=== PATIENT | male | born 1970 | race Caucasian/White ===

== ENCOUNTER 2016-08-21 16:53 | Emergency (ER) | payer OTHER ==
[~2016-08-21] VITALS: Ht 175.3 cm; Wt 96.9 kg
[~2016-08-21 16:53] MED LIST: ASPI-515 PO; ATEN50TA41 PO; ATOR40TA78 PO; CARV3.122 PO; CYCL-259 PO; FENO145T13 PO; GLUCOSAMINE WITH MSM; HYDR-3240 PO; LISI40TA PO; MULT-717 PO; OMEG1CAP12 PO; OMEP-110 PO; ROSU10TA PO; ROSU40TA PO; TRIA1TAB3 PO
[2016-08-21 17:13] VITALS: BP 130/88
[2016-08-21] MEDS ORDERED: ALBUTEROL/IPRATROPIUM 2.5MG/0.5MG, 3 ML NPPB ONE (18:30)
== END 2016-08-21 19:07 | disposition home or self-care (01) ==
LOC: ED 19:00
DX: J00 Acute nasopharyngitis [common cold] (principal); I10 Essential (primary) hypertension; G89.29 Other chronic pain; Z87.891 Personal history of nicotine dependence; Z86.73 Personal history of transient ischemic attack (TIA), and cerebral infarction without residual deficits
CPT/HCPCS: 36415; 71020; 85025; 94640; 99285; J7620

== ENCOUNTER → 2016-08-24 | Outpatient (CLI) | payer OTHER | END | disposition home or self-care (01) | LOC: CVU 08:31 | PROVIDERS: ATTEND Internal Medicine Cardiovascular Disease | DX: I65.23 Occlusion and stenosis of bilateral carotid arteries (principal); E78.5 Hyperlipidemia, unspecified; I10 Essential (primary) hypertension; Z87.891 Personal history of nicotine dependence | CPT/HCPCS: 93880 ==

== ENCOUNTER 2016-08-30 06:53 | Emergency (ER) | payer OTHER ==
[~2016-08-30] VITALS: Ht 175.3 cm; Wt 98.0 kg
[2016-08-30] MEDS ORDERED: CLOP75TA22 PO (07:28)
[2016-08-30] MEDS ORDERED: SODIUM CHLORIDE FLUSH 10ML SYR IVF ONE (07:30)
[2016-08-30] MEDS ORDERED: SODIUM CHLORIDE 0.9% 1,000ML IVBOLUS ONE (07:30)
[2016-08-30] MEDS ORDERED: ONDANSETRON 2MG/ML, 2ML IVPush ONE (07:30)
[2016-08-30 07:57] LABS: BLOOD UREA NITROGEN 14 mg/dL (7-18)
[2016-08-30 07:58] LABS: ASPARTATE AMINO TRANSFERASE 20 U/L (15-37)
[2016-08-30] MEDS ORDERED: ONDANSETRON 2MG/ML, 2ML ONE (08:06)
[2016-08-30] MEDS ORDERED: OMNIPAQUE 350 MG/ML, 100ML BOTTLE ONE (08:48)
[2016-08-30 09:55] VITALS: BP 93/50
== END 2016-08-30 10:27 | disposition home or self-care (01) ==
LOC: ED 07:46
DX: R10.2 Pelvic and perineal pain (principal); R19.7 Diarrhea, unspecified; R11.0 Nausea; Z87.891 Personal history of nicotine dependence
CPT/HCPCS: 36415; 74177; 80053; 81003; 83690; 85025; 96361; 96374; 99285; J2405; J7030; Q9967

== ENCOUNTER 2017-06-19 08:37 | Observation (INO) | payer BC, OTHER ==
[~2017-06-19] VITALS: Ht 175.3 cm; Wt 98.5 kg
[~2017-06-19 08:37] MED LIST changes: +CLOP75TA52 PO; +FLUO20CA19 PO; +GLUC1TAB21 PO; -OMEG1CAP12 PO; +OMEG1CAP23 PO; +VITA1TAB3 PO
[2017-06-19] MEDS ORDERED: ACETAMINOPHEN 500 MG TABLET ONE (09:26)
[2017-06-19] MEDS ORDERED: SODIUM CHLORIDE FLUSH 10ML SYR IVF ONE (09:30)
[2017-06-19] MEDS ORDERED: METOCLOPRAMIDE 5 MG/ML, 2ML IVPush ONE (09:30)
[2017-06-19] MEDS ORDERED: SODIUM CHLORIDE 0.9% 1,000ML IVBOLUS ONE (09:30)
[2017-06-19] MEDS ORDERED: ACETAMINOPHEN 500 MG TABLET PO ONE (09:30)
[2017-06-19] MEDS ORDERED: HYDR12.53 PO (09:44)
[2017-06-19] MEDS ORDERED: CYCL5TAB PO (09:44)
[2017-06-19] MEDS ORDERED: PROCHLORPERAZINE 5 MG/ML, 2ML IVPush ONE (10:00)
[2017-06-19] MEDS ORDERED: PROCHLORPERAZINE 5 MG/ML, 2ML ONE (10:02)
[2017-06-19 10:18] LABS: BASOPHILS # (AUTO) 0.02 x10^3/uL (0-0.1); BASOPHILS % (AUTO) 0 % (0-1); EOSINOPHILS % (AUTO) 2 % (1-7); LYMPHOCYTES # (AUTO) 1.25 x10^3/uL (1-3.4); LYMPHOCYTES % (AUTO) 18 % (22-44); MD NO; MEAN CORPUSCULAR HGB CONC 32.5 g/dL (33.2-36.2); MEAN CORPUSCULAR VOLUME 80.1 fL (81-97); MEAN PLATELET VOLUME 9.3 fL (7.4-10.4); MONOCYTES # (AUTO) 0.56 x10^3/uL (0.2-0.8); MONOCYTES % (AUTO) 8 % (2-9); NEUTROPHILS # (AUTO) 5.08 x10^3/uL (1.8-6.8); NEUTROPHILS % (AUTO) 72 % (42-75); PLATELET COUNT 283 x10^3/uL (130-400); RED BLOOD COUNT 5.39 x10^6/uL (4.38-5.82); RED CELL DISTRIBUTION WIDTH 15.4 % (9.4-14.8)
[2017-06-19 10:21] LABS: INTERNATIONAL NORMALIZED RATIO 1.04 (0.93-1.1); PROTHROMBIN TIME 10.7 Seconds (9.6-11.5)
[2017-06-19 10:26] LABS: ALBUMIN 4.1 g/dL (3.4-5.0); ANION GAP 5 mmol/L (5-15); CALCIUM 9.1 mg/dL (8.5-10.1); CHLORIDE 103 mmol/L (98-107)
[2017-06-19 10:33] LABS: ALANINE AMINOTRANSFERASE 130 U/L (12-78); ALKALINE PHOSPHATASE 84 U/L (45-117); BILIRUBIN,TOTAL 0.4 mg/dL (0.2-1.0); CREATININE 1.05 mg/dL (0.7-1.3); TROPONIN I < 0.015 ng/mL (0.000-0.045)
[2017-06-19 10:47] LABS: MICROSCOPIC NOT IND
[2017-06-19 10:50] LABS: CULTURE INDICATED? NO
[2017-06-19] MEDS ORDERED: hydrALAzine 20 MG/ML, 1ML IVPush PRN (12:30)
[2017-06-19] MEDS ORDERED: BISACODYL 10 MG SUPP PR PRN (12:30)
[2017-06-19] MEDS ORDERED: HYDROcodone/APAP 5/325 TABLET PO PRN (12:30)
[2017-06-19] MEDS ORDERED: ONDANSETRON ODT 4 MG PO PRN (12:30)
[2017-06-19] MEDS ORDERED: ONDANSETRON 2MG/ML, 2ML IVPush PRN (12:30)
[2017-06-19] MEDS ORDERED: ACETAMINOPHEN 325 MG TABLET PO PRN (12:30)
[2017-06-19] MEDS ORDERED: DOCUSATE 100 MG CAPSULE PO PRN (12:30)
[2017-06-19] MEDS ORDERED: TRAZODONE 50MG TABLET PO PRN (12:30)
[2017-06-19 12:49] VITALS: BP 114/69
[2017-06-19] MEDS ORDERED: CYCLOBENZAPRINE 10 MG TABLET PO PRN (13:00)
[2017-06-19] MEDS: ENOXAPARIN 40 MG/0.4 ML SQ SCH (13:06)
[2017-06-19 13:15] LABS: FREE T4 (FREE THYROXINE) 0.99 ng/dL (0.76-1.46); TROPONIN I < 0.015 ng/mL (0.000-0.045)
[2017-06-19 17:57] LABS: TROPONIN I < 0.015 ng/mL (0.000-0.045)
[2017-06-19] MEDS: CARVEDILOL 3.125 MG TABLET PO SCH (20:32)
[2017-06-19] MEDS ORDERED: FENOFIBRATE 145 MG TABLET PO SCH (21:00)
[2017-06-19] MEDS ORDERED: ATORVASTATIN 80 MG TABLET PO SCH (21:00)
[2017-06-19] MEDS ORDERED: FLUOXETINE HCL 20 MG CAPSULE PO SCH (21:00)
[2017-06-20 00:27] VITALS: BP 105/67
[2017-06-20 04:31] VITALS: BP 95/56
[2017-06-20 05:36] LABS: ANION GAP 6 mmol/L (5-15); CALCIUM 8.6 mg/dL (8.5-10.1); CHLORIDE 104 mmol/L (98-107)
[2017-06-20 05:38] LABS: CREATININE 1.03 mg/dL (0.7-1.3)
[2017-06-20 05:58] LABS: BASOPHILS # (AUTO) 0.02 x10^3/uL (0-0.1); BASOPHILS % (AUTO) 0 % (0-1); EOSINOPHILS # (AUTO) 0.13 x10^3/uL (0-0.4); EOSINOPHILS % (AUTO) 2 % (1-7); LYMPHOCYTES # (AUTO) 1.48 x10^3/uL (1-3.4); LYMPHOCYTES % (AUTO) 23 % (22-44); MD NO; MEAN CORPUSCULAR HEMOGLOBIN 26.4 pg (27.5-34.5); MEAN CORPUSCULAR HGB CONC 32.9 g/dL (33.2-36.2); MEAN CORPUSCULAR VOLUME 80.2 fL (81-97); MONOCYTES # (AUTO) 0.69 x10^3/uL (0.2-0.8); MONOCYTES % (AUTO) 11 % (2-9); NEUTROPHILS # (AUTO) 4.09 x10^3/uL (1.8-6.8); NEUTROPHILS % (AUTO) 64 % (42-75); PLATELET COUNT 217 x10^3/uL (130-400); RED BLOOD COUNT 4.61 x10^6/uL (4.38-5.82); RED CELL DISTRIBUTION WIDTH 15.4 % (9.4-14.8)
[2017-06-20 07:20] VITALS: BP 97/58
[2017-06-20 08:47] VITALS: BP 113/70
[2017-06-20] MEDS: CARVEDILOL 3.125 MG TABLET PO SCH (08:50)
[2017-06-20] MEDS ORDERED: OMEPRAZOLE 20 MG CAPSULE.DR PO SCH (09:00)
[2017-06-20] MEDS ORDERED: LISINOPRIL 20 MG TABLET PO SCH (09:00)
[2017-06-20] MEDS ORDERED: MULTIVITS,STRESS FORMULA 1 TABLET PO SCH (09:00)
[2017-06-20] MEDS ORDERED: TRIAMTERENE-HCTZ 37.5/25 MG TABLET PO SCH (09:00)
[2017-06-20] MEDS ORDERED: CLOPIDOGREL 75 MG TABLET PO SCH (09:00)
[2017-06-20] MEDS ORDERED: HYDROCHLOROTHIAZIDE 12.5 MG CAPSULE PO SCH (09:00)
[2017-06-20] MEDS ORDERED: ATORVASTATIN 80 MG TABLET PO SCH (09:00)
[2017-06-20] MEDS ORDERED: MULTIVITAMINS/MINERALS TABLET PO SCH (09:00)
[2017-06-20] MEDS: ENOXAPARIN 40 MG/0.4 ML SQ SCH (13:00)
[2017-06-20 13:06] VITALS: BP 123/72
== END 2017-06-20 14:05 | disposition home or self-care (01) ==
LOC: ED 11:52 → INTOOBSV 11:57 → EDIP 11:57 → 4EST 12:27
PROVIDERS: ADMIT Internal Medicine Pulmonary Disease; ATTEND Internal Medicine Pulmonary Disease
DX: R55 Syncope and collapse (principal); I10 Essential (primary) hypertension; E78.5 Hyperlipidemia, unspecified; K21.9 Gastro-esophageal reflux disease without esophagitis; R74.0 Nonspecific elevation of levels of transaminase and lactic acid dehydrogenase [LDH]; G89.29 Other chronic pain; Z86.73 Personal history of transient ischemic attack (TIA), and cerebral infarction without residual deficits; I25.10 Atherosclerotic heart disease of native coronary artery without angina pectoris
CPT/HCPCS: 36415; 70450; 71045; 80048; 80053; 81003; 83880; 84439; 84443; 84484; 85025; 85610; 85730; 93005; 93306; 93880; 96361; 96372; 96374; 97165; 99285; G0378; J0780; J1650; J7030

== ENCOUNTER 2017-09-27 16:43 | Emergency (ER) | payer BC, OTHER ==
[~2017-09-27] VITALS: Ht 175.3 cm; Wt 101.4 kg
[~2017-09-27 16:43] MED LIST changes: +CYCL5TAB PO; -FENO145T13 PO; +FENO145T30 PO; +HYDR12.53 PO
[2017-09-27 16:45] VITALS: BP 134/74
[2017-09-27] MEDS ORDERED: SODIUM CHLORIDE FLUSH 10ML SYR IVF ONE (17:00)
[2017-09-27 17:20] LABS: MD NO; MEAN CORPUSCULAR HGB CONC 32.4 g/dL (33.2-36.2); MEAN CORPUSCULAR VOLUME 78.2 fL (81-97); RED BLOOD COUNT 4.92 x10^6/uL (4.38-5.82)
[2017-09-27 17:29] LABS: ALBUMIN 3.9 g/dL (3.4-5.0); ANION GAP 8 mmol/L (5-15); BASOPHILS # (AUTO) 0.03 x10^3/uL (0-0.1); BASOPHILS % (AUTO) 1 % (0-1); CALCIUM 9.3 mg/dL (8.5-10.1); CHLORIDE 106 mmol/L (98-107); CREATININE 1.09 mg/dL (0.7-1.3); EOSINOPHILS # (AUTO) 0.08 x10^3/uL (0-0.4); EOSINOPHILS % (AUTO) 2 % (1-7); LYMPHOCYTES # (AUTO) 1.42 x10^3/uL (1-3.4); LYMPHOCYTES % (AUTO) 25 % (22-44); MEAN CORPUSCULAR HEMOGLOBIN 25.3 pg (27.5-34.5); MEAN PLATELET VOLUME 8.8 fL (7.4-10.4); MONOCYTES # (AUTO) 0.56 x10^3/uL (0.2-0.8); MONOCYTES % (AUTO) 10 % (2-9); NEUTROPHILS % (AUTO) 63 % (42-75); PLATELET COUNT 260 x10^3/uL (130-400); RED CELL DISTRIBUTION WIDTH 17.1 % (9.4-14.8)
[2017-09-27 17:33] LABS: TROPONIN I < 0.015 ng/mL (0.000-0.045)
== END 2017-09-27 19:54 | disposition home or self-care (01) ==
LOC: ED 19:54
DX: S46.912A Strain of unspecified muscle, fascia and tendon at shoulder and upper arm level, left arm, initial encounter (principal); I10 Essential (primary) hypertension; Z86.73 Personal history of transient ischemic attack (TIA), and cerebral infarction without residual deficits; Z90.49 Acquired absence of other specified parts of digestive tract; W18.30XA Fall on same level, unspecified, initial encounter; Y93.89 Activity, other specified; Y92.89 Other specified places as the place of occurrence of the external cause; Y99.8 Other external cause status
CPT/HCPCS: 36415; 71046; 71250; 80048; 82040; 83735; 83880; 84484; 85025; 93005; 99285

== ENCOUNTER 2017-10-02 17:52 | Inpatient (IN) | payer OTHER ==
[~2017-10-02] VITALS: Ht 175.3 cm; Wt 96.4 kg
[2017-10-02 18:43] LABS: INTERNATIONAL NORMALIZED RATIO 1.06 (0.93-1.1); PROTHROMBIN TIME 10.9 Seconds (9.6-11.5)
[2017-10-02 18:52] LABS: BASOPHILS # (AUTO) 0.01 x10^3/uL (0-0.1); BASOPHILS % (AUTO) 0 % (0-1); EOSINOPHILS # (AUTO) 0.08 x10^3/uL (0-0.4); EOSINOPHILS % (AUTO) 1 % (1-7); LYMPHOCYTES # (AUTO) 1.37 x10^3/uL (1-3.4); LYMPHOCYTES % (AUTO) 23 % (22-44); MD NO; MEAN CORPUSCULAR HEMOGLOBIN 24.8 pg (27.5-34.5); MEAN CORPUSCULAR HGB CONC 32.1 g/dL (33.2-36.2); MEAN CORPUSCULAR VOLUME 77.1 fL (81-97); MEAN PLATELET VOLUME 9.1 fL (7.4-10.4); MONOCYTES # (AUTO) 0.63 x10^3/uL (0.2-0.8); MONOCYTES % (AUTO) 11 % (2-9); NEUTROPHILS # (AUTO) 3.92 x10^3/uL (1.8-6.8); NEUTROPHILS % (AUTO) 65 % (42-75); PLATELET COUNT 240 x10^3/uL (130-400); RED BLOOD COUNT 5.04 x10^6/uL (4.38-5.82); RED CELL DISTRIBUTION WIDTH 16.9 % (9.4-14.8)
[2017-10-02] MEDS ORDERED: CLOPIDOGREL 75 MG TABLET PO STA (19:30)
[2017-10-02] MEDS ORDERED: CLOPIDOGREL 75 MG TABLET ONE (19:35)
[2017-10-02] MEDS ORDERED: PRAZ1CAP2 PO (20:18)
[2017-10-02] MEDS ORDERED: BUSP15TA PO (20:18)
[2017-10-02] MEDS ORDERED: ONDANSETRON ODT 4 MG PO PRN (20:30)
[2017-10-02] MEDS ORDERED: LABETALOL 5MG/ML, 20ML IVPush PRN (20:30)
[2017-10-02] MEDS ORDERED: LACTATED RINGERS 1,000 ML IV SCH (20:30)
[2017-10-02] MEDS ORDERED: ONDANSETRON 2MG/ML, 2ML IVPush PRN (20:30)
[2017-10-02] MEDS ORDERED: HYDROcodone/APAP 5/325 TABLET PO PRN (20:30)
[2017-10-02] MEDS ORDERED: ENOXAPARIN 40 MG/0.4 ML SQ SCH (20:30)
[2017-10-02 20:39] LABS: FREE T4 (FREE THYROXINE) 0.98 ng/dL (0.76-1.46)
[2017-10-02 20:59] LABS: CHOL/HDL RATIO 4.6; LDL/HDL RATIO 2.4 (0.5-3.0)
[2017-10-02 21:00] VITALS: BP 115/72
[2017-10-02] MEDS ORDERED: FLEXERIL MC SCH (21:00)
[2017-10-02] MEDS ORDERED: FLUOXETINE HCL 20 MG CAPSULE PO SCH (21:00)
[2017-10-02] MEDS ORDERED: FENOFIBRATE 145 MG TABLET PO SCH (21:00)
[2017-10-02 21:11] LABS: HEMOGLOBIN A1C 6.3 % (4.2-6.3)
[2017-10-02] MEDS: BUSPIRONE 5 MG TABLET PO SCH (21:38)
[2017-10-02] MEDS: CARVEDILOL 3.125 MG TABLET PO SCH (21:38)
[2017-10-03 00:41] VITALS: BP 113/66
[2017-10-03 05:14] LABS: BASOPHILS # (AUTO) 0.02 x10^3/uL (0-0.1); BASOPHILS % (AUTO) 0 % (0-1); EOSINOPHILS # (AUTO) 0.12 x10^3/uL (0-0.4); EOSINOPHILS % (AUTO) 2 % (1-7); LYMPHOCYTES # (AUTO) 1.79 x10^3/uL (1-3.4); LYMPHOCYTES % (AUTO) 31 % (22-44); MD NO; MEAN CORPUSCULAR HEMOGLOBIN 24.7 pg (27.5-34.5); MEAN CORPUSCULAR HGB CONC 31.8 g/dL (33.2-36.2); MEAN CORPUSCULAR VOLUME 77.7 fL (81-97); MEAN PLATELET VOLUME 8.8 fL (7.4-10.4); MONOCYTES # (AUTO) 0.66 x10^3/uL (0.2-0.8); MONOCYTES % (AUTO) 11 % (2-9); NEUTROPHILS # (AUTO) 3.24 x10^3/uL (1.8-6.8); NEUTROPHILS % (AUTO) 56 % (42-75); PLATELET COUNT 228 x10^3/uL (130-400); RED BLOOD COUNT 4.71 x10^6/uL (4.38-5.82); RED CELL DISTRIBUTION WIDTH 17.2 % (9.4-14.8)
[2017-10-03 05:25] LABS: ALBUMIN 3.6 g/dL (3.4-5.0); ANION GAP 7 mmol/L (5-15); CALCIUM 8.6 mg/dL (8.5-10.1); CHLORIDE 106 mmol/L (98-107)
[2017-10-03 05:37] LABS: ALANINE AMINOTRANSFERASE 98 U/L (12-78); ALKALINE PHOSPHATASE 49 U/L (45-117); BILIRUBIN,TOTAL 0.8 mg/dL (0.2-1.0); CREATININE 1.06 mg/dL (0.7-1.3); TOTAL PROTEIN 6.7 g/dL (6.4-8.2)
[2017-10-03 07:11] VITALS: BP 126/68
[2017-10-03] MEDS ORDERED: CLOPIDOGREL 75 MG TABLET PO SCH (09:00)
[2017-10-03] MEDS ORDERED: OMEPRAZOLE 20 MG CAPSULE.DR PO SCH (09:00)
[2017-10-03] MEDS ORDERED: MULTIVITAMIN 1 TABLET PO SCH (09:00)
[2017-10-03] MEDS ORDERED: CYCLOBENZAPRINE 10 MG TABLET PO PRN (09:00)
[2017-10-03] MEDS ORDERED: ATORVASTATIN 40 MG TABLET PO SCH (09:00)
[2017-10-03] MEDS ORDERED: MULTIVITS,STRESS FORMULA 1 TABLET PO SCH (09:00)
[2017-10-03] MEDS ORDERED: SENNA/DOCUSATE TABLET PO SCH (09:00)
[2017-10-03] MEDS ORDERED: HYDROCHLOROTHIAZIDE 12.5 MG CAPSULE PO SCH (09:00)
[2017-10-03] MEDS ORDERED: TRIAMTERENE-HCTZ 37.5/25 MG TABLET PO SCH (09:00)
[2017-10-03] MEDS: BUSPIRONE 5 MG TABLET PO SCH (09:04)
[2017-10-03] MEDS: CARVEDILOL 3.125 MG TABLET PO SCH (09:04)
[2017-10-03 12:52] VITALS: BP 130/73
== END 2017-10-03 16:39 | disposition home or self-care (01) | DRG 69 ==
LOC: ED 19:30 → EDIP 20:00 → 4EST 20:49 → DCLOUNGE 10-03 16:30
PROVIDERS: ADMIT Internal Medicine; ATTEND Internal Medicine
DX: G45.9 Transient cerebral ischemic attack, unspecified (principal); E78.5 Hyperlipidemia, unspecified; F17.210 Nicotine dependence, cigarettes, uncomplicated; F32.9 Major depressive disorder, single episode, unspecified; F41.0 Panic disorder [episodic paroxysmal anxiety]; F43.10 Post-traumatic stress disorder, unspecified; I10 Essential (primary) hypertension; J43.9 Emphysema, unspecified; Z79.02 Long term (current) use of antithrombotics/antiplatelets; Z80.1 Family history of malignant neoplasm of trachea, bronchus and lung
CPT/HCPCS: 36415; 70450; 70551; 80047; 80053; 80061; 83036; 83735; 84100; 84439; 84443; 85025; 85610; 85730; 93005; J1650; J7120

== ENCOUNTER → 2018-08-16 | Outpatient (CLI) | payer BC, OTHER ==
[~2018-08-16] MED LIST changes: +BUSP15TA PO; +HYDR12.517 PO; -HYDR12.53 PO; +PRAZ1CAP2 PO; -ROSU10TA PO; +ROSU10TA2 PO
== END | disposition home or self-care (01) ==
LOC: CVU 09:42
PROVIDERS: ATTEND Physician Assistant
DX: I07.1 Rheumatic tricuspid insufficiency (principal); I65.23 Occlusion and stenosis of bilateral carotid arteries; I10 Essential (primary) hypertension; E78.5 Hyperlipidemia, unspecified; K21.9 Gastro-esophageal reflux disease without esophagitis; Z86.73 Personal history of transient ischemic attack (TIA), and cerebral infarction without residual deficits
CPT/HCPCS: 93306; 93880